=== PATIENT | female | born 1970 | race Caucasian/White ===

== ENCOUNTER 2017-03-22 10:01 | Emergency (ER) | payer MEDICAID ==
[2017-03-22 10:07] VITALS: BP 122/79; O2SAT 97
[2017-03-22 10:08] VITALS: BMI 29.2
--- NOTE | 2017-03-22 10:51 | ED PDOC ---
HPI: Trauma/Fall - HPI Time Seen by Provider: 03/22/17 10:11 Chief Complaint (Provider): Fall History Per: Patient Additional Complaint(s): 47 yo female, no PMH, presents to ED with complaint sof left gret toe pain and Lower back pain sustained from a fall up the steps yesterday evening. Took Ibuprofen last night. Toe is bruised and lightly swollen. pain is worse upon ambulation. Past Medical History Reviewed: Nursing Documentation, Vital Signs Vital Signs: Last Vital Signs Temp 98.3 F 03/22/17 10:07 Pulse 96 H 03/22/17 10:07 Resp BP 122/79 03/22/17 10:07 Pulse Ox 97 03/22/17 10:07 - Medical History PMH: No Chronic Diseases - Surgical History Surgical History: Other surgeries: tubal - Family History Family History: States: No Known Family Hx - Social History Current smoker - smoking cessation education provided: No Alcohol: None Drugs: Denies - Home Medications Home Medications: Ambulatory Orders Medication Instructions Recorded Naproxen 375 mg PO Q8 PRN #21 tab 09/17/15 Naproxen [Naprosyn] 500 mg PO Q12H #20 tab 03/16/16 Cyclobenzaprine [Cyclobenzaprine 10 mg PO TID #20 tab 03/22/17 HCl] Ibuprofen [Motrin] 600 mg PO Q6 #20 tab 03/22/17 - Allergies Allergies/Adverse Reactions: Allergies Allergy/AdvReac Type Severity Reaction Status Date / Time No Known Allergies Allergy Verified 09/17/15 18:51 Review of Systems ROS Statement: Except As Marked, All Systems Reviewed And Found Negative Musculoskeletal: Positive for: Back Pain, Other (toe pain) Physical Exam - Reviewed Nursing Documentation Reviewed: Yes Vital Signs Reviewed: Yes - Physical Exam Appears: Positive for: Well, Non-toxic, No Acute Distress Head Exam: Positive for: ATRAUMATIC, NORMAL INSPECTION, NORMOCEPHALIC Skin: Positive for: Normal Color, Warm, DRY Eye Exam: Positive for: EOMI, Normal appearance, PERRL ENT: Positive for: Normal ENT Inspection Neck: Positive for: Normal, Painless ROM Cardiovascular/Chest: Positive for: Regular Rate, Rhythm Respiratory: Positive for: CNT, Normal Breath Sounds Gastrointestinal/Abdominal: Positive for: Normal Exam, Bowel Sounds, Soft Back: Positive for: Normal Inspection. Negative for: Vertebral Tenderness, Muscle Spasm Extremity: Positive for: Normal ROM, Other (ecchymosis) Neurologic/Psych: Positive for: Alert, Oriented - ECG O2 Sat by Pulse Oximetry: 97 Medical Decision Making Medical Decision Making: Pt medicated with Motrin PO. XRs obtained of LS spine and Toe: NAd, as rad by PATyshawnC Toes marcio taped and surgical shoe applied. RICE therapy advised Disposition - Clinical Impression Clinical Impression: Toe contusion, Back pain - Patient ED Disposition Is Patient to be Admitted: No - Disposition Disposition: Routine/Home Disposition Time: 11:57 Condition: STABLE Prescriptions: Cyclobenzaprine [Cyclobenzaprine HCl] 10 mg PO TID #20 tab Ibuprofen [Motrin] 600 mg PO Q6 #20 tab Instructions: Back Pain (ED), Arthralgia (ED) - POA Present On Arrival: Falls Or Trauma
[2017-03-22 10:57] VITALS: RESP 14
--- NOTE | 2017-03-22 12:18 | RAD ---
PROCEDURE: Radiographs of the left great toe. TECHNIQUE:: AP radiograph of the left foot, with oblique and lateral view of the left great toe. COMPARISON: 09/17/2015. FINDINGS: BONES: Bone alignment and mineralization are normal. There is no acute fracture or bone destruction. There is a prominent plantar calcaneal spur. There is a dorsal calcaneal enthesophyte. JOINTS: Normal. SOFT TISSUES: Normal. OTHER FINDINGS: None. IMPRESSION: No acute fracture or dislocation.
--- NOTE | 2017-03-22 12:20 | RAD ---
PROCEDURE: Radiographs of the Lumbar Spine. HISTORY: Pain, fall COMPARISON: No prior. FINDINGS: BONES: There is normal alignment of the lumbar vertebral bodies. Lumbar lordosis is maintained. Vertebral bodies are normal in height. There is no acute fracture, spondylolysis or spondylolisthesis. DISC SPACES: There is mild degenerative disc disease in the lower lumbar spine with anterior spurring, mild reduced disc heights and multilevel facet arthropathy, worse at L5-S1. OTHER FINDINGS: There are no pathologic soft tissue calcifications. Both sacroiliac joints are normal. IMPRESSION: No acute fracture, spondylolysis or spondylolisthesis.
[2017-03-22 13:06] VITALS: PULSE 92; TEMP 98
== END 2017-03-22 12:30 | disposition home or self-care (01) ==
LOC: H.ER 10:01
DX: S90.112A Contusion of left great toe without damage to nail, initial encounter (principal); M54.9 Dorsalgia, unspecified; W10.9XXA Fall (on) (from) unspecified stairs and steps, initial encounter; Y92.89 Other specified places as the place of occurrence of the external cause

== ENCOUNTER 2018-07-28 11:47 | Emergency (ER) | payer MEDICAID ==
[2018-07-28 11:48] VITALS: BMI 29.2
[2018-07-28 11:54] VITALS: TEMP 98; O2SAT 100
--- NOTE | 2018-07-28 12:25 | ED PDOC ---
HPI: General Adult Time Seen by Provider: 07/28/18 12:02 Chief Complaint (Nursing): Back Pain Chief Complaint (Provider): Neck Pain History Per: Patient History/Exam Limitations: no limitations Onset/Duration Of Symptoms: Days (x1) Current Symptoms Are (Timing): Still Present Additional Complaint(s): 48 year old female presents to the ED for evaluation of neck pain. Patient reports thaton he dove into a pool and "face planted," feeling her neck whiplash backward. Immediately, she notes pain to her face, but woke up the following day with stiffness to both sides of her neck, radiating down into bilat shoulders and head, causing a headache. She states she took Advil with no relief. Otherwise, denies loss of consciousness, anticoagulant use, nausea, vomiting, fever, current facial pain, previous tbi, and history of seizures, numbness, tingling. PMD: [facility] Past Medical History Reviewed: Historical Data, Nursing Documentation, Vital Signs Vital Signs: Last Vital Signs Temp 98.0 F 07/28/18 11:53 Pulse 92 H 07/28/18 11:53 Resp 20 07/28/18 11:53 BP 131/84 07/28/18 11:53 Pulse Ox 100 07/28/18 13:39 - Medical History PMH: No Chronic Diseases - Surgical History Surgical History: Other surgeries: tubal ligation - Family History Family History: States: Unknown Family Hx - Social History Ex-Smoker (has not smoked in the last 12 months): Yes Alcohol: None Drugs: Denies - Home Medications Home Medications: Ambulatory Orders Medication Instructions Recorded Naproxen 375 mg PO Q8 PRN #21 tab 09/17/15 Naproxen [Naprosyn] 500 mg PO Q12H #20 tab 03/16/16 Cyclobenzaprine [Cyclobenzaprine 10 mg PO TID #20 tab 03/22/17 HCl] Ibuprofen [Motrin] 600 mg PO Q6 #20 tab 03/22/17 Meloxicam [Mobic] 1 - 2 tab PO DAILY PRN #15 tab 07/28/18 Methocarbamol [Robaxin] 500 mg PO TID PRN #15 tab 07/28/18 - Allergies Allergies/Adverse Reactions: Allergies Allergy/AdvReac Type Severity Reaction Status Date / Time No Known Allergies Allergy Verified 09/17/15 18:51 Review of Systems ROS Statement: Except As Marked, All Systems Reviewed And Found Negative Constitutional: Negative for: Fever ENT: Negative for: Other (current facial pain) Gastrointestinal: Negative for: Nausea, Vomiting Musculoskeletal: Positive for: Neck Pain (stiffness both sides of neck radiating down to bilat shoulders and head) Neurological: Positive for: Headache. Negative for: Other (loss of consciousness) Physical Exam - Reviewed Nursing Documentation Reviewed: Yes Vital Signs Reviewed: Yes - Physical Exam Appears: Positive for: Non-toxic, In Acute Distress (moderate painful) Head Exam: Positive for: ATRAUMATIC, NORMAL INSPECTION, NORMOCEPHALIC Skin: Positive for: Normal Color, Warm, Dry. Negative for: Rash Eye Exam: Positive for: Normal appearance, EOMI, PERRL ENT: Positive for: Normal ENT Inspection Neck: Positive for: Pain On Movement Of Neck (with moderate bilateral para cervical and trapezius muscle spasm but no midline tenderness) Back: Positive for: Normal Inspection. Negative for: L CVA Tenderness, R CVA Tenderness, Vertebral Tenderness Neurologic/Psych: Positive for: Alert, Oriented (x3). Negative for: Aphasia, Facial Droop - ECG O2 Sat by Pulse Oximetry: 100 (RA) Pulse Ox Interpretation: Normal Medical Decision Making Medical Decision Making: Time: 1208 Initial Impression: head injury, torticollis, rule out tbi and cervical fx Initial Plan: --CT C-spine w/o contrast --CT Head w/o contrast --Tylenol 975 mg PO --Valium 10 mg PO [address] FINDINGS: HEMORRHAGE: No intracranial hemorrhage. BRAIN: No mass effect or edema. No atrophy or chronic microvascular ischemic changes. VENTRICLES: Unremarkable. No hydrocephalus. CALVARIUM: Unremarkable. PARANASAL SINUSES: Minimal mucosal thickening is seen in the left maxillary sinus. MASTOID AIR CELLS: Unremarkable as visualized. No inflammatory changes. OTHER FINDINGS: Subdural windows fail to reveal evidence of high density extra-axial acute subdural hematoma. No new cortical effacement is seen retro-orbital regions are unremarkable. No sellar masses are noted. IMPRESSION: No evidence of intracranial hemorrhage or extra-axial fluid collection. No interval change from prior study. 1331 CT C-spine FINDINGS: VERTEBRAE: No fracture. Normal alignment. No destructive bony lesion. DISCS/SPINAL CANAL/NEURAL FORAMINA: There is evidence of disc space narrowing and endplate spurring at the C5-6 disc space level with posterior disc osteophyte complex noted. This is causing minor abutment upon the cord. Mild neural foraminal narrowing is also seen at this level. Milder endplate change and bulging are seen at the other levels. No jumped facets are identified. C1-C2 articulation shows no evidence of abnormal widening. Dens is intact. No cervical ribs are seen. PARASPINAL SOFT TISSUES: Unremarkable. OTHER FINDINGS: Lung apices are within normal limits. Thoracic inlet reveals mild heterogeneity of the thyroid gland without appreciable focal nodule. No adenopathy is seen in the neck. IMPRESSION: No evidence of fracture or malalignment. Please see above. Pt. informed of results. Reports pain has improved but still present. Advised to f/u with Jennifer for further evaluation and possible MRI. Toradol 15mg IM ordered. Scribe Attestation: Documented by Nicolasa Chilel, acting as a scribe for Alfie Blue PA-C. Provider Scribe Attestation: All medical record entries made by the Scribe were at my direction and personally dictated by me. I have reviewed the chart and agree that the record accurately reflects my personal performance of the history, physical exam, medical decision making, and the department course for this patient. I have also personally directed, reviewed, and agree with the discharge instructions and disposition. Disposition - Clinical Impression Clinical Impression: Cervical radiculopathy - Patient ED Disposition Is Patient to be Admitted: No - Disposition Referrals: [facility] [Outside] Disposition: Routine/Home Disposition Time: 13:34 Condition: IMPROVED Additional Instructions: FOLLOW UP WITH YOUR PRIMARY CARE DOCTOR FOR POSSIBLE FURTHER IMAGING TENISHA PERDUE, thank you for letting us take care of you today. Your provider was Mainor Chavis MD and you were treated for NECK PAIN. The emergency medical care you received today was directed at your acute symptoms. If you were prescribed any medication, please fill it and take as directed. It may take several days for your symptoms to resolve. Return to the Emergency Department if your symptoms worsen, do not improve, or if you have any other problems. Please contact your doctor or call one of the physicians/clinics you have been referred to that are listed on the Patient Visit Information form that is included in your discharge packet. Bring any paperwork you were given at discharge with you along with any medications you are taking to your follow up visit. Our treatment cannot replace ongoing medical care by a primary care provider outside of the emergency department. Thank you for allowing the [facility] team to be part of your care today. If you had an X-Ray or CT scan: A Radiologist will review the ED reading if any change in treatment is needed we will contact you. If you had a blood, urine, or wound culture: It will take several days for the results, if any change in treatment is needed we will contact you. If you had an STI test: It will take 48 hours for the results. Please call after 1 week if you have not heard back. Prescriptions: Meloxicam [Mobic] 1 - 2 tab PO DAILY PRN #15 tab PRN Reason: Pain Methocarbamol [Robaxin] 500 mg PO TID PRN #15 tab PRN Reason: Muscle Spasm Instructions: Radiculopathy (DC) Forms: [employer] (Wolof) Print Language: JORDANIAN
--- NOTE | 2018-07-28 13:14 | CT ---
Date of service: 07/28/2018 PROCEDURE: CT HEAD WITHOUT CONTRAST. HISTORY: trauma COMPARISON: 03/16/2016 TECHNIQUE: Axial computed tomography images were obtained through the head/brain without intravenous contrast. Radiation dose: Total exam DLP = 793 mGy-cm. This CT exam was performed using one or more of the following dose reduction techniques: Automated exposure control, adjustment of the mA and/or kV according to patient size, and/or use of iterative reconstruction technique. FINDINGS: HEMORRHAGE: No intracranial hemorrhage. BRAIN: No mass effect or edema. No atrophy or chronic microvascular ischemic changes. VENTRICLES: Unremarkable. No hydrocephalus. CALVARIUM: Unremarkable. PARANASAL SINUSES: Minimal mucosal thickening is seen in the left maxillary sinus. MASTOID AIR CELLS: Unremarkable as visualized. No inflammatory changes. OTHER FINDINGS: Subdural windows fail to reveal evidence of high density extra-axial acute subdural hematoma. No new cortical effacement is seen retro-orbital regions are unremarkable. No sellar masses are noted. IMPRESSION: No evidence of intracranial hemorrhage or extra-axial fluid collection. No interval change from prior study.
--- NOTE | 2018-07-28 13:32 | CT ---
Date of service: 07/28/2018 PROCEDURE: CT Cervical Spine without contrast HISTORY: trauma COMPARISON: None available. TECHNIQUE: Axial computed tomography images were obtained of the cervical spine without the use of intravenous contrast. Coronal and sagittal reformatted images were created and reviewed. Radiation dose: Total exam DLP = three hundred thirty-one mGy-cm. This CT exam was performed using one or more of the following dose reduction techniques: Automated exposure control, adjustment of the mA and/or kV according to patient size, and/or use of iterative reconstruction technique. FINDINGS: VERTEBRAE: No fracture. Normal alignment. No destructive bony lesion. DISCS/SPINAL CANAL/NEURAL FORAMINA: There is evidence of disc space narrowing and endplate spurring at the C5-6 disc space level with posterior disc osteophyte complex noted. This is causing minor abutment upon the cord. Mild neural foraminal narrowing is also seen at this level. Milder endplate change and bulging are seen at the other levels. No jumped facets are identified. C1-C2 articulation shows no evidence of abnormal widening. Dens is intact. No cervical ribs are seen. PARASPINAL SOFT TISSUES: Unremarkable. OTHER FINDINGS: Lung apices are within normal limits. Thoracic inlet reveals mild heterogeneity of the thyroid gland without appreciable focal nodule. No adenopathy is seen in the neck. IMPRESSION: No evidence of fracture or malalignment. Please see above.
[2018-07-28 14:11] VITALS: BP 128/78; PULSE 70; RESP 18
== END 2018-07-28 14:12 | disposition home or self-care (01) ==
LOC: H.ER 11:47
DX: M54.12 Radiculopathy, cervical region (principal); R51 Headache
CPT/HCPCS: 70450; 72125; 96372; 99282; J1885

== ENCOUNTER 2018-11-26 20:43 | Emergency (ER) | payer MEDICAID ==
[2018-11-26 20:43] VITALS: BMI 29.2
[2018-11-26 20:59] VITALS: TEMP 98.2
[2018-11-26] MEDS ORDERED: Sodium Chloride 0.9% 1,000 ML IV STA (22:02)
--- NOTE | 2018-11-26 22:24 | ED PDOC ---
HPI: Chest Pain Time Seen by Provider: 11/26/18 21:08 Chief Complaint (Nursing): Chest Pain Chief Complaint (Provider): Chest Pain History Per: Patient History/Exam Limitations: no limitations Onset/Duration Of Symptoms: Days Current Symptoms Are (Timing): Still Present Associated Symptoms: Nausea Additional Complaint(s): Gogo Chavez is a 48 year old female with no past medical history who is presenting to the ED for evaluation of chest pain and dizziness. Patient states that for the last three days she has had dizziness and today she developed chest pain, numbness to arms and tingling. She also complains of headaches and nausea but denies any vomiting, or trouble walking and speaking. Of note, patient describes the dizziness as room spinning and states that sometimes she feels drunk without consuming alcohol. PMD: [facility] Past Medical History Reviewed: Historical Data, Nursing Documentation, Vital Signs Vital Signs: Last Vital Signs Temp 98.2 F 11/26/18 20:56 Pulse 88 11/26/18 20:56 Resp 16 11/26/18 20:56 BP 134/89 11/26/18 20:56 Pulse Ox 98 11/26/18 20:56 - Medical History PMH: No Chronic Diseases - Surgical History Surgical History: Other surgeries: Tubal ligation - Family History Family History: States: Unknown Family Hx - Social History Current smoker - smoking cessation education provided: No Alcohol: None Drugs: Denies - Home Medications Home Medications: Ambulatory Orders Medication Instructions Recorded Naproxen 375 mg PO Q8 PRN #21 tab 09/17/15 Naproxen [Naprosyn] 500 mg PO Q12H #20 tab 03/16/16 Cyclobenzaprine [Cyclobenzaprine 10 mg PO TID #20 tab 03/22/17 HCl] Ibuprofen [Motrin] 600 mg PO Q6 #20 tab 03/22/17 Meloxicam [Mobic] 1 - 2 tab PO DAILY PRN #15 tab 07/28/18 Methocarbamol [Robaxin] 500 mg PO TID PRN #15 tab 07/28/18 Meclizine [Antivert] 25 mg PO Q6 PRN #12 tab 11/26/18 - Allergies Allergies/Adverse Reactions: Allergies Allergy/AdvReac Type Severity Reaction Status Date / Time No Known Allergies Allergy Verified 11/26/18 20:55 Review of Systems ROS Statement: Except As Marked, All Systems Reviewed And Found Negative Cardiovascular: Positive for: Chest Pain Gastrointestinal: Positive for: Nausea. Negative for: Vomiting Neurological: Positive for: Numbness, Dizziness, Other ((+) tingling, (-) trouble walking/speaking) Physical Exam - Reviewed Nursing Documentation Reviewed: Yes Vital Signs Reviewed: Yes - Physical Exam Appears: Positive for: Non-toxic, No Acute Distress Head Exam: Positive for: ATRAUMATIC, NORMAL INSPECTION, NORMOCEPHALIC Skin: Positive for: Normal Color, Warm, DRY Eye Exam: Positive for: EOMI, Normal appearance, PERRL ENT: Positive for: Normal ENT Inspection Neck: Positive for: Normal, Painless ROM Cardiovascular/Chest: Positive for: Regular Rate, Rhythm. Negative for: Murmur Respiratory: Positive for: Normal Breath Sounds. Negative for: Respiratory Distress Gastrointestinal/Abdominal: Positive for: Normal Exam, Soft. Negative for: Tenderness Back: Positive for: Normal Inspection. Negative for: L CVA Tenderness, R CVA Tenderness Extremity: Positive for: Normal ROM. Negative for: Deformity, Swelling Neurologic/Psych: Positive for: Alert, Oriented. Negative for: Motor/Sensory Deficits - Laboratory Results Result Diagrams: 11/26/18 22:09 11/26/18 22:15 - ECG O2 Sat by Pulse Oximetry: 98 (RA) Pulse Ox Interpretation: Normal Medical Decision Making Medical Decision Making: Time: 21:22 Impression: 48 year old female with chest pain and vertiginous dizziness Plan: --CT Head --EKG --CMP --Troponin --ED Urine --ED Urine Dipstick --CBC --Antivert 25 mg PO --IV Fluids 23:50 CT Head FINDINGS: BRAIN No acute intraparenchymal hemorrhage. No mass lesion. No CT evidence for acute territorial infarct. No midline shift or extra-axial collections. VENTRICLES: No hydrocephalus. ORBITS: The orbits are unremarkable. SINUSES AND MASTOIDS: The paranasal sinuses and mastoid air cells are clear. BONES: No fracture. SOFT TISSUES: Unremarkable. IMPRESSION: No acute intracranial abnormality. 23:56 Labs reviewed and reveal no clinically significant abnormalities. Head CT is unremarkable. Diagnosis is vertigo and paresthesias. Scribe Attestation: Documented by Rosa Vaughn, acting as a scribe for Harvey Walters MD. Provider Scribe Attestation: All medical record entries made by the Scribe were at my direction and personally dictated by me. I have reviewed the chart and agree that the record accurately reflects my personal performance of the history, physical exam, medical decision making, and the department course for this patient. I have also personally directed, reviewed, and agree with the discharge instructions and disposition. Disposition - Clinical Impression Clinical Impression: Paresthesia, Vertigo - Patient ED Disposition Is Patient to be Admitted: No - Disposition Disposition: Routine/Home Disposition Time: 23:56 Condition: STABLE Prescriptions: Meclizine [Antivert] 25 mg PO Q6 PRN #12 tab PRN Reason: Dizziness Instructions: Vertigo (a Type of Dizziness), Paresthesias (DC) Forms: [employer] (Kittitian)
[2018-11-26 23:24] LABS: BASO # 0.1 K/uL (0.0-0.2); BASO % 0.8 % (0.0-2.0); EOS # 0.2 K/uL (0.0-0.7); EOS % 2.3 % (0.0-4.0); HEMOGLOBIN 14.1 g/dL (12.0-16.0); LYMPH % 41.3 % (20.0-40.0); MEAN CELL VOLUME 88.7 fl (81.0-99.0); MEAN CORPUSCULAR HEMOGLOBIN 29.6 pg (27.0-31.0); MEAN CORPUSCULAR HGB CONC 33.4 g/dL (33.0-37.0); MEAN PLATELET VOLUME 9.5 fl (7.2-11.7); MONO # 0.6 K/uL (0.0-0.8); MONO % 5.9 % (0.0-10.0); NEUT # 4.8 K/uL (1.8-7.0); NEUT % 49.7 % (50.0-75.0); NRBC % 0.1 % (0.0-0.0); RBC 4.75 Mil/uL (3.80-5.20); RED CELL DISTRIBUTION WIDTH 12.7 % (11.5-14.5); WHITE BLOOD COUNT 9.6 K/uL (4.8-10.8)
[2018-11-26 23:37] LABS: ALB/GLOB RATIO 1.4 (1.0-2.1); ALBUMIN 4.4 g/dL (3.5-5.0); ALT/SGPT 32 U/L (9-52); AST/SGOT 20 U/L (14-36); BLOOD UREA NITROGEN 21 mg/dl (7-17); CALCIUM 9.8 mg/dL (8.4-10.2); GFR NON-AFRICAN AMERICAN > 60
[2018-11-27 03:46] VITALS: BP 114/70; PULSE 77; RESP 18; O2SAT 99
--- NOTE | 2018-11-27 10:56 | CT ---
Date of service: 11/26/2018 PROCEDURE: CT HEAD WITHOUT CONTRAST. HISTORY: headache COMPARISON: None available. TECHNIQUE: Axial computed tomography images were obtained through the head/brain without intravenous contrast. Radiation dose: Total exam DLP = 749.48 mGy-cm. This CT exam was performed using one or more of the following dose reduction techniques: Automated exposure control, adjustment of the mA and/or kV according to patient size, and/or use of iterative reconstruction technique. FINDINGS: HEMORRHAGE: No intracranial hemorrhage. BRAIN: No mass effect or edema. No atrophy or chronic microvascular ischemic changes. VENTRICLES: Unremarkable. No hydrocephalus. CALVARIUM: Unremarkable. PARANASAL SINUSES: Unremarkable as visualized. No significant inflammatory changes. MASTOID AIR CELLS: Unremarkable as visualized. No inflammatory changes. OTHER FINDINGS: None. IMPRESSION: Normal CT of the Head. No intracranial mass, hemorrhage or evidence of acute infarct. The preliminary findings for this examination were reported by [facility] at 11:49 p.m. on 11/26/2018. There is concurrence of this report with the preliminary findings.
== END 2018-11-27 01:02 | disposition home or self-care (01) ==
LOC: H.ER 20:43
DX: R20.2 Paresthesia of skin (principal); R42 Dizziness and giddiness